=== PATIENT | female | born 1980 | race African-American/Black ===

== ENCOUNTER 2025-04-17 00:32 | Emergency (ER) | payer BC ==
[~2025-04-17] VITALS: Ht 165.1 cm; Wt 78.2 kg
[2025-04-17 01:00] VITALS: PULSE 136; RESP 22; O2SAT 93
[2025-04-17] MEDS: IPRATROPIUM BROMIDE (0.02%) 0.5MG/2.5ML NEB HHN SCH (01:00)
[2025-04-17] MEDS: ALBUTEROL (0.083%) 2.5MG/3ML NEB HHN SCH (01:00)
[2025-04-17 01:12] VITALS: PULSE 130; RESP 20; O2SAT 94
[2025-04-17 01:22] VITALS: PULSE 108; RESP 20; O2SAT 95
[2025-04-17] MEDS: METHYLPREDNISOLONE SOD SUCC 125MG/2ML (ACT-O-VIAL) IV ONE (02:47)
[2025-04-17] MEDS: MAGNESIUM 2 G PREMIX 50 ML IV ONE (02:47)
[2025-04-17] MEDS: SODIUM CHLORIDE 0.9% 1,000 ML IV ONE (02:47)
[2025-04-17 02:51] LABS: BASOPHILS % 0.5 % (0.0-2.0); EOSINOPHILS % 7.9 % (0.0-5.0); HEMATOCRIT. 36.2 % (36.0-48.0); HEMOGLOBIN. 11.6 g/dL (12.0-16.0); LYMPHOCYTES % 12.7 % (20.0-50.0); MEAN PLATELET VOLUME 7.7 fl (7.4-10.4); MONOCYTES % 10.7 % (2.0-8.0); NEUTROPHILS % 68.2 % (40.0-76.0); PLATELET 521 x1000/uL (130-400); RED BLOOD CELL COUNT 4.41 mill/uL (4.2-5.4); RED CELL DISTRIBUTION WIDTH 14.6 % (11.6-14.6)
[2025-04-17 03:07] LABS: CREATININE 0.6 mg/dL (0.6-1.0); UREA NITROGEN BLOOD 7 mg/dL (9-23)
[2025-04-17 03:08] LABS: TROPONIN I HIGH SENSITIVITY < 4 ng/L (3.0-34)
[2025-04-17 03:09] LABS: ASPARTATE AMINOTRANSFERASE 30 IU/L (<34); BILIRUBIN DIRECT < 0.1 mg/dL (<=3.0); BILIRUBIN TOTAL 0.3 mg/dL (0.1-1.0); PROTEIN TOTAL 7.7 g/dL (6.0-8.3)
[2025-04-17] MEDS ORDERED: P50 MT (04:07)
[2025-04-17 04:47] VITALS: BP 131/82; PULSE 92; RESP 17; TEMP 36.6; O2SAT 99
== END 2025-04-17 04:49 | disposition home or self-care (01) ==
LOC: ER 00:32
DX: J45.901 Unspecified asthma with (acute) exacerbation (principal); Z79.52 Long term (current) use of systemic steroids; Z87.01 Personal history of pneumonia (recurrent); Z88.2 Allergy status to sulfonamides
CPT/HCPCS: 80076; 80048; 83880; 85025; 84484; 36415; 71045; 94640; 96365; 96375; 99285; J3475; J2919; Z7610 ×3; J7030